=== PATIENT | male | born 2000 | race Caucasian/White ===

== ENCOUNTER 2024-11-07 16:01 | Outpatient (CLI) | payer OTHER, SELFPAY ==
--- NOTE | ~2024-11-07 | XR_ITS ---
EXAM: XR shoulder LT min 2V DATE: 11/07/2024 16:16 HISTORY: Unspecified injury of left shoulder and upper arm, initial e . COMPARISON: None available. FINDINGS: Normal mineralization. No fracture or dislocation. No lytic or blastic lesion. Joint space s are maintained. No erosion or periosteal change. Soft tissues within normal limits. IMPRESSION: Normal left shoulder radiograph findings. If pain persists, or clinical suspicion of inju ry is high, recommend MRI of the left shoulder for further evaluation. Reviewed, dictated and finalized at location K. IMPRESSION: Normal left shoulder radiograph findings. If pain persists, or clin ical suspicion of injury is high, recommend MRI of the left shoulder for furthe r evaluation.
== END 2024-11-07 16:02 | disposition home or self-care (01) ==
PROVIDERS: PCP Physician Assistant; Visit Provider Physician Assistant
DX: S49.92XA Unspecified injury of left shoulder and upper arm, initial encounter (principal); X58.XXXA Exposure to other specified factors, initial encounter
CPT/HCPCS: 73030